=== PATIENT | female | born 1965 | race African-American/Black ===

== ENCOUNTER 2019-01-14 20:31 | Emergency (ER) | payer OTHER ==
--- OUTSIDE RECORDS SUMMARY | 2019-01-14 20:33 | XMS REPORT ---
:1965 [facility] Address [address] [place] [address] [address] [place] [address] Care Team Providers Name Role Phone Unavailable Unavailable Unavailable Problems This patient has no known problems. Allergies, Adverse Reactions, Alerts This patient has no known allergies or adverse reactions. Medications This patient has no known medications.
[2019-01-14] MEDS ORDERED: IBUPROFEN 400 MG TAB ONE (21:22)
[2019-01-14] MEDS ORDERED: ACETAMINOPHEN 500 MG TAB ONE (21:23)
--- NOTE | 2019-01-14 23:22 | EDPHYS ---
Physician Documentation [facility] Name: Oksana Singh Age: 53 yrs Sex: Female : 1965 Arrival Date: 01/14/2019 Time: 20:34 Bed 10 Private MD: Judie Regalado K ED Physician Harry Boswell HPI: 01/14 21:25 This 53 yrs old Black Female presents to ER via Ambulatory with complaints of Knee cp Injury. 21:25 The patient presents with pain, that is acute. The complaints affect the lateral aspect cp of left calf, left calf and left knee. Context: resulted from an unknown cause, the patient can fully bear weight, the patient is able to ambulate, with mild difficulty. 21:25 Onset: The symptoms/episode began/occurred 2-3 weeks ago. Modifying factors: the cp symptoms are aggravated by weight bearing. Associated signs and symptoms: Pertinent negatives fever. Treatment prior to arrival includes: no previous treatment. 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 - Social history:: Smoking status: Patient/guardian denies using tobacco, never smoked. - Ebola Screening: : No symptoms or risks identified at this time. ROS: 21:30 Constitutional: Negative for body aches, chills, fever, poor PO intake. cp 21:30 Eyes: Negative for injury, pain, redness, and discharge. cp 21:30 Cardiovascular: Negative for chest pain, palpitations. 21:30 Respiratory: Negative for cough, shortness of breath, wheezing. 21:30 Abdomen/GI: Negative for abdominal pain, nausea, vomiting, and diarrhea. 21:30 Back: Negative for pain at rest, pain with movement. 21:30 MS/extremity: Positive for pain, tenderness, of the left knee and left calf and lateral aspect of left calf, Negative for injury or acute deformity, decreased range of motion. 21:30 Skin: Negative for rash. 21:30 Neuro: Negative for numbness, weakness. 21:30 All other systems are negative. Exam: 21:45 Constitutional: The patient appears in no acute distress, alert, awake, cp non-diaphoretic, non-toxic, well developed, well nourished, obese. 21:45 Head/Face: Normocephalic, atraumatic. cp 21:45 Eyes: Periorbital structures: appear normal, Conjunctiva: normal, no exudate, no injection, Lids and lashes: appear normal, bilaterally. 21:45 ENT: External ear(s): are unremarkable, Nose: is normal, Mouth: is normal, Posterior pharynx: Airway: no evidence of obstruction, patent. 21:45 Chest/axilla: Inspection: normal. 21:45 Cardiovascular: Rate: normal, Rhythm: regular. 21:45 Respiratory: the patient does not display signs of respiratory distress, Respirations: normal. 21:45 Musculoskeletal/extremity: Extremities: grossly normal except: noted in the left knee and left calf and lateral aspect of left calf: pain, tenderness, There is no evidence of decreased ROM, swelling, DVT Exam: no erythema, no increased warmth, pain, that is mild, of the left leg, tenderness, that is mild, of the left leg. 21:45 Skin: cellulitis, is not appreciated, no rash present. Vital Signs: 21:25 BP 142 / 69; Pulse 80; Resp 18; Pulse Ox 98% ; Pain 8/10; cr4 22:30 BP 137 / 72; Pulse 82; Resp 18; Pulse Ox 100% on R/A; wh MDM: 21:17 Patient medically screened. cp 22:00 Differential diagnosis: closed fracture, tendonitis, DVT. cp 23:20 Data reviewed: vital signs, nurses notes, radiologic studies, plain films, ultrasound. cp 23:21 Test interpretation: by ED physician or midlevel provider: plain radiologic studies. cp Counseling: I had a detailed discussion with the patient and/or guardian regarding: the historical points, exam findings, and any diagnostic results supporting the discharge/admit diagnosis, radiology results, to return to the emergency department if symptoms worsen or persist or if there are any questions or concerns that arise at home. 23:21 Response to treatment: the patient's symptoms have mildly improved after treatment. ED cp course: VSS. Verbal report of US negative for DVT, xrays of left knee negative for fracture. 01/14 21:18 Order name: XRAY Knee LEFT 3 view cp 01/14 21:37 Order name: US Extremity Venous Unilateral Ltd cp Administered Medications: 21:28 Drug: Tylenol 1000 mg Route: PO; cr4 23:29 Follow up: Response: No adverse reaction; Pain is decreased 21:29 Drug: Ibuprofen 800 mg Route: PO; cr4 23:29 Follow up: Response: No adverse reaction; Pain is decreased Disposition: 01/14/19 23:22 Discharged to Home. Impression: Pain in left knee, Pain in left lower leg. - Condition is Stable. - Discharge Instructions: Musculoskeletal Pain, Knee Pain. - Prescriptions for Naprosyn 500 mg Oral Tablet - take 1 tablet by ORAL route 2 times per day take with food; 20 tablet. Tramadol 50 mg Oral Tablet - take 1 tablet by ORAL route every 8 hours as needed; 12 tablet. - Medication Reconciliation Form, Thank You Letter, Antibiotic Education, Prescription Opioid Use form. - Follow up: Andrae Jhaveri MD; When: 2 - 3 days; Reason: Recheck today's complaints. - Problem is new. - Symptoms have improved. Signatures: Dispatcher [employer] EDRosie Daniel, RN RN cr4 Juaquin Ricardo PA PA Kristopher Cross Corrections: (The following items were deleted from the chart) 23:31 23:22 01/14/2019 23:22 Discharged to Home. Impression: Pain in left knee; Pain in left wh lower leg. Condition is Stable. Forms are Medication Reconciliation Form, Thank You Letter, Antibiotic Education, Prescription Opioid Use. Follow up: Andrae Jhaveri; When: 2 - 3 days; Reason: Recheck today's complaints. Problem is new. Symptoms have improved. cp
--- NOTE | 2019-01-14 23:22 | ER ---
Nurse's Notes [facility] Name: Oksana Singh Age: 53 yrs Sex: Female : 1965 Arrival Date: 01/14/2019 Time: 20:34 Bed 10 Private MD: Judie Regalado K Diagnosis: Pain in left knee;Pain in left lower leg Presentation: 01/14 21:08 Presenting complaint: Patient states: patient stated that a month ago she stepped off cr4 of some stairs and felt her knee pop. Since then she has had left knee pain that radiates to the back of the knee and slightly down her leg. Pain increased when standing long periods. Transition of care: patient was not received from another setting of care. Onset of symptoms was December 09, 2018. Risk Assessment: Do you want to hurt yourself or someone else? Patient reports no desire to harm self or others. Initial Sepsis Screen: Does the patient meet any 2 criteria? No. Patient's initial sepsis screen is negative. Care prior to arrival: None. 21:08 Method Of Arrival: Ambulatory cr4 21:08 Acuity: LORETO 5 cr4 22:00 Initial Sepsis Screen: Does the patient have a suspected source of infection? No. Patient's initial sepsis screen is negative. Triage Assessment: 21:15 General: Appears comfortable, obese, well groomed, Behavior is calm, cooperative. Pain: cr4 Complains of pain in left knee Pain radiates to posterior left knee and down mid borja. Pain currently is 8 out of 10 on a pain scale. Quality of pain is described as aching, Pain began one month ago. Is intermittent, Alleviated by standing and exercise. EENT: No deficits noted. Neuro: Denies weakness numbness. Cardiovascular: No deficits noted. Respiratory: No deficits noted. GI: No deficits noted. : No deficits noted. Derm: Skin is intact, Skin is dry, Skin is pink, warm \T\ dry. Musculoskeletal: Circulation, motion, and sensation intact. Range of motion: intact in all extremities. 22:00 Injury Description: Left Knee Pain. 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 - Social history:: Smoking status: Patient/guardian denies using tobacco, never smoked. - Ebola Screening: : No symptoms or risks identified at this time. Screenin:00 Abuse screen: Denies threats or abuse. Denies injuries from another. Nutritional wh screening: No deficits noted. Tuberculosis screening: No symptoms or risk factors identified. Fall Risk None identified. Assessment: 22:00 General: Appears in no apparent distress. uncomfortable, Behavior is calm, cooperative, wh appropriate for age. Pain: Complains of pain in left knee Pain does not radiate. Pain currently is 5 out of 10 on a pain scale. Quality of pain is described as aching. Neuro: Level of Consciousness is awake, alert, obeys commands, Oriented to person, place, time, situation, Appropriate for age. Cardiovascular: Capillary refill < 3 seconds. Respiratory: Airway is patent Respiratory effort is even, unlabored, Respiratory pattern is regular, symmetrical. GI: Abdomen is flat, non-distended. : No signs and/or symptoms were reported regarding the genitourinary system. EENT: No signs and/or symptoms were reported regarding the EENT system. Derm: Skin is intact, is healthy with good turgor, Skin is pink, warm \T\ dry. normal. Musculoskeletal: Range of motion: intact in all extremities, Reports pain in Left KNee. 23:29 Reassessment: Patient appears in no apparent distress at this time. No changes from previously documented assessment. Patient and/or family updated on plan of care and expected duration. Pain level reassessed. Patient is alert, oriented x 3, equal unlabored respirations, skin warm/dry/pink. Patient states feeling better. Patient states symptoms have improved. Vital Signs: 21:25 BP 142 / 69; Pulse 80; Resp 18; Pulse Ox 98% ; Pain 8/10; cr4 22:30 BP 137 / 72; Pulse 82; Resp 18; Pulse Ox 100% on R/A; ED Course: 20:34 Patient arrived in ED. cl3 20:35 Judie Regalado MD is Private Physician. cl3 21:10 Triage completed. cr4 21:13 Juaquin Ricardo PA is PHCP. cp 21:14 Harry Boswell MD is Attending Physician. cp 21:19 Kristopher Cross is Primary Nurse. wh 22:00 XRAY Knee LEFT 3 view In Process Unspecified. EDMS 22:00 Arm band placed on right wrist. wh 22:00 Patient has correct armband on for positive identification. Bed in low position. Call light in reach. Side rails up X 1. Pulse ox on. NIBP on. 23:15 US Extremity Venous Unilateral Ltd In Process Unspecified. EDMS 23:21 Andrae Jhaveri MD is Referral Physician. cp 23:29 No provider procedures requiring assistance completed. Patient did not have IV access during this emergency room visit. Administered Medications: 21:28 Drug: Tylenol 1000 mg Route: PO; cr4 23:29 Follow up: Response: No adverse reaction; Pain is decreased 21:29 Drug: Ibuprofen 800 mg Route: PO; cr4 23:29 Follow up: Response: No adverse reaction; Pain is decreased Outcome: 23:22 Discharge ordered by MD. cp 23:30 Discharged to home ambulatory. 23:30 Condition: good 23:30 Discharge instructions given to patient, Instructed on discharge instructions, follow up and referral plans. no drinking with medication, no driving heavy equipment, medication usage, POC musculoskeletal Pain Demonstrated understanding of instructions, follow-up care, medications, POC Prescriptions given X 2. 23:31 Patient left the ED. Signatures: Dispatcher [employer] Rosie Richey, RN RN cr4 Juaquin Ricardo PA PA Kristopher Sotelo Genaro Vaca cl3
[2019-01-15 01:42] VITALS: BP 137/72; O2SAT 100
--- NOTE | 2019-01-15 08:22 | RAD REPORT ---
EXAM DESCRIPTION: US - Extremity Venous Uni Ltd - 01/14/2019 11:14 pm CLINICAL HISTORY: Left leg pain and swelling COMPARISON: None. TECHNIQUE: Real-time sonographic evaluation of the left lower extremity deep venous system was perfo rmed. FINDINGS: Normal compressibility, flow augmentation, phasic flow and spontaneous flow are identified in the left lower extremity common femoral, superficial femoral, popliteal and posterior tibial vein s. No intraluminal filling defects seen. IMPRESSION: No DVT in the left lower extremity.
--- NOTE | 2019-01-15 10:11 | RAD REPORT ---
EXAM DESCRIPTION: RAD - Knee Left 3 View - 01/14/2019 9:59 pm CLINICAL HISTORY: Left knee pain following trauma COMPARISON: None. FINDINGS: No acute fractures seen. No dislocation or periosteal reaction.No joint effusion seen. Sig nificant patellofemoral joint space narrowing is present with large patella and femoral marginal spur s. Lateral compartment narrowing is present also with significant medial and lateral compartment joseph inal spurs. There are large spurs along the intercondylar notch of the femur and the tibial spine. No air or foreign body in the soft tissues. IMPRESSION: Very advanced for age degenerative change of the left knee. No acute bone or joint findi ng identifiable. Clinical concerns for internal derangement or occult bony injury could be further assessed with MR im aging.
== END 2019-01-14 23:31 | disposition home or self-care (01) ==
LOC: ER 20:31
DX: M25.562 Pain in left knee (principal); M79.662 Pain in left lower leg
CPT/HCPCS: 93971; 99284

== ENCOUNTER 2022-03-09 10:28 | Emergency (ER) | payer OTHER ==
--- OUTSIDE RECORDS SUMMARY | 2022-03-09 10:31 | XMS REPORT | Continuity of Care Document ---
:1965 Author Organization [facility] t Address [address] [place] [address] Care Team Providers Name Role Phone MARIA TERESA GREER Attending Clinician Unavailable Payers Payer Name Policy Type Policy Number Effective Date Expiration Date [facility] [id number] 2018 PPO 00:00:00 Problems This patient has no known problems. Allergies, Adverse Reactions, Alerts Allergy Allergy Status Severity Reaction(s) Onset Inactive Treating Comm ents Source Name Type Date Date Clinician NO KNOWN Drug Active [facility]ER[facility] Medications This patient has no known medications. Procedures This patient has no known procedures. Encounters Start End Encounter Admission Attending Care Care Encounter Source Date/Time Date/Time Type Type Clinicians Facility Department ID 2020-01-11 2020-01-11 Outpatient [facility] [id number] 08:00:00 08:00:00 MARIA TERESA [facility] Results This patient has no known results.
[2022-03-09] MEDS ORDERED: MORPHINE 4 MG/ML SYR ONE (11:16)
[2022-03-09] MEDS ORDERED: ONDANSETRON 4 MG/2 ML VIAL ONE (11:16)
[2022-03-09 11:30] LABS: Absolute Lymphocytes (CBC) 0.9 K/uL (0.7-4.9); Hematocrit 40.1 % (36.0-45.0); Lymphocytes % 13.5 % (15.3-44.8); MCV 83.8 fL (80-100); MPV 7.8 fL (7.6-11.3); RBC Red Blood Cell Count 4.79 M/uL (3.86-4.86)
[2022-03-09 11:40] LABS: Urine Blood Negative (Negative); Urine Glucose Negative (Negative); Urine Protein Negative (Negative); Urine Specific Gravity 1.015 (1.005-1.030); Urine pH 5.5 (5.0-7.0)
--- NOTE | 2022-03-09 12:04 | RAD REPORT ---
EXAM DESCRIPTION: CT - Stone Protocol - 03/09/2022 11:45 am CLINICAL HISTORY: Abdominal pain. Right flank pain COMPARISON: None. TECHNIQUE: Computed axial tomography of the abdomen pelvis was obtained without oral or IV contrast. Lack of IV and oral contrast limits evaluation of solid organs, appendix, bowel, and vessels. Jackson l reformatted images were obtained and reviewed. All CT scans are performed using dose optimization technique as appropriate and may include automated exposure control or mA/KV adjustment according to patient size. FINDINGS: A renal calculus is not seen. An ureteral calculus is not noted. A bladder calculus is not present. Multiple gallstones. Gallbladder wall does not appear thickened. The liver, spleen, pancreas and adrenals appear grossly normal There is no evidence of diverticulitis. The appendix upper limits normal caliber. No stranding within the adjacent fat No adnexal mass Small right pleural effusion Moderate umbilical hernia IMPRESSION: Negative for a genitourinary calculus Cholelithiasis without evidence cholecystitis
[2022-03-09 12:15] LABS: Urine Specific Gravity/Preg 1.015 (1.005-1.030)
[2022-03-09 12:31] LABS: Albumin 2.6 g/dL (3.4-5.0); Bilirubin Total 0.2 mg/dL (0.2-1.0); Potassium 3.8 mmol/L (3.5-5.1); Protein, Total 8.5 g/dL (6.4-8.2)
--- NOTE | 2022-03-09 13:36 | EDPHYS ---
Physician Documentation [facility] Name: Oksana Singh Age: 57 yrs Sex: Female : 1965 Arrival Date: 03/09/2022 Time: 10:32 Bed 15 Private MD: ED Physician London Davis HPI: 03/09 17:36 This 57 yrs old Black Female presents to ER via Ambulatory with complaints of Ear Pain, kdr Low Back Pain - right side, Constipation. 17:36 Patient presents with 2 complaints 1 of which is right ear pain. The other is right kdr flank pain. The ear pain has been ongoing for about a week and a half. The flank pain started Garcia evening. She has not had either of these complaints previously. She is otherwise been in her usual state of health. She denies any other significant illness and injury. She is completely nontoxic appearing and not in any acute distress. She is sitting comfortably in bed on initial presentation and during the exam.. Severity of symptoms: At their worst the symptoms were mild in the emergency department the symptoms are unchanged. The patient has not experienced similar symptoms in the past. The patient has not recently seen a physician. Historical: - Allergies: 10:59 No Known Allergies; ss - PMHx: 10:59 Diabetes - NIDDM; Thyroid problem; ss - Immunization history:: Client reports receiving the 2nd dose of the Covid vaccine. - Social history:: Smoking status: Patient denies any tobacco usage or history of. ROS: 17:36 Constitutional: Negative for fever, chills, and weight loss, Eyes: Negative for injury, kdr pain, redness, and discharge, Neck: Negative for injury, pain, and swelling, Cardiovascular: Negative for chest pain, palpitations, and edema. 17:36 Respiratory: Negative for shortness of breath, cough, wheezing, and pleuritic chest pain, Abdomen/GI: Negative for abdominal pain, nausea, vomiting, diarrhea, and constipation, : Negative for injury, bleeding, discharge, and swelling, MS/Extremity: Negative for injury and deformity, Skin: Negative for injury, rash, and discoloration, Neuro: Negative for headache, weakness, numbness, tingling, and seizure activity. Psych: Negative for depression, anxiety, suicide ideation, homicidal ideation, and hallucinations, Allergy/Immunology: Negative for hives, rash, and allergies, Endocrine: Negative for neck swelling, polydipsia, polyuria, polyphagia, and marked weight changes, Hematologic/Lymphatic: Negative for swollen nodes, abnormal bleeding, and unusual bruising. 17:36 ENT: Positive for ear pain. 17:36 Abdomen/GI: Positive for abdominal pain, Flank pain. Exam: 17:36 Constitutional: This is a well developed, well nourished patient who is awake, alert, kdr and in no acute distress. Head/Face: Normocephalic, atraumatic. Eyes: Pupils equal round and reactive to light, extra-ocular motions intact. Lids and lashes normal. Conjunctiva and sclera are non-icteric and not injected. Cornea within normal limits. Periorbital areas with no swelling, redness, or edema. Neck: Trachea midline, no thyromegaly or masses palpated, and no cervical lymphadenopathy. Supple, full range of motion without nuchal rigidity, or vertebral point tenderness. No Meningismus. Chest/axilla: Normal chest wall appearance and motion. Nontender with no deformity. No lesions are appreciated. Cardiovascular: Regular rate and rhythm with a normal S1 and S2. No gallops, murmurs, or rubs. Normal PMI, no JVD. No pulse deficits. Respiratory: Lungs have equal breath sounds bilaterally, clear to auscultation and percussion. No rales, rhonchi or wheezes noted. No increased work of breathing, no retractions or nasal flaring. Skin: Warm, dry with normal turgor. Normal color with no rashes, no lesions, and no evidence of cellulitis. MS/ Extremity: Pulses equal, no cyanosis. Neurovascular intact. Full, normal range of motion. Neuro: Awake and alert, GCS 15, oriented to person, place, time, and situation. Cranial nerves II-XII grossly intact. Motor strength 5/5 in all extremities. Sensory grossly intact. Cerebellar exam normal. Normal gait. Psych: Awake, alert, with orientation to person, place and time. Behavior, mood, and affect are within normal limits. 17:36 ENT: External ear(s): are unremarkable, Ear canal(s): 17:36 Abdomen/GI: Inspection: obese Bowel sounds: active, Palpation: soft, mild abdominal tenderness, in the posterior aspect of left lateral abdomen and anterior aspect of left lateral abdomen. Vital Signs: 10:44 BP 144 / 80; Pulse 102; Resp 18; Temp 98.2; Pulse Ox 100% on R/A; Weight 147.42 kg; ss Height 5 ft. 6 in. (167.64 cm); Pain 8/10; 12:11 BP 117 / 72; Pulse 94; Resp 16; Pulse Ox 98% on R/A; tp1 13:10 BP 102 / 80; Pulse 112; Resp 16; Pulse Ox 94% on R/A; tp1 10:44 Body Mass Index 52.46 (147.42 kg, 167.64 cm) ss MDM: 13:35 Patient medically screened. kdr 17:36 Data reviewed: vital signs, nurses notes, lab test result(s), radiologic studies. kdr Counseling: I had a detailed discussion with the patient and/or guardian regarding: the historical points, exam findings, and any diagnostic results supporting the discharge/admit diagnosis, lab results, radiology results, the need for outpatient follow up. 03/09 11:12 Order name: CBC with Diff; Complete Time: 12:29 kdr 03/09 11:12 Order name: CMP; Complete Time: 13:24 kdr 03/09 11:12 Order name: Lipase; Complete Time: 13:24 kdr 03/09 11:12 Order name: CT Stone Protocol; Complete Time: 12:29 kdr 03/09 11:41 Order name: Urine Dipstick-Ancillary; Complete Time: 12:29 EDMS 03/09 11:44 Order name: Urine --Ancillary (enter results); Complete Time: 12:29 ss 03/09 11:12 Order name: IV Saline Lock; Complete Time: 11:13 kdr 03/09 11:12 Order name: Labs collected and sent; Complete Time: 11:13 kdr 03/09 11:33 Order name: Labs - recollect needed; Complete Time: 12:05 ss Administered Medications: 11:19 Drug: Zofran (Ondansetron) 4 mg Route: IVP; Site: left antecubital; tp1 11:21 Drug: morphine 4 mg Route: IVP; Infused Over: 4 mins; Site: left antecubital; tp1 Disposition Summary: 03/09/22 13:35 Discharge Ordered Location: Home kdr Problem: new kdr Symptoms: have improved kdr Condition: Stable kdr Diagnosis - Flank pain kdr - Abdominal pain, Generalized kdr - Other cholelithiasis without obstruction kdr - Unspecified otitis externa, right ear kdr Followup: kdr - With: Private Physician - When: 2 - 3 days - Reason: If symptoms return, Further diagnostic work-up, Recheck today's complaints, Continuance of care, Re-evaluation by your physician Discharge Instructions: - Discharge Summary Sheet kdr - Flank Pain, Adult kdr - Otitis Externa, [id number] kdr - Abdominal Pain, Adult, [id number] kdr Forms: - Medication Reconciliation Form kdr - Thank You Letter kdr - Antibiotic Education kdr - Prescription Opioid Use kdr Prescriptions: - Cortisporin-TC 3.3-3-10-0.5 mg/mL Otic Suspension - instill 4 drops by OTIC route every 6 hours; 1 bottle; Refills: 0, Product kdr Selection Permitted - Tramadol 50 mg Oral Tablet - take 1 tablet by ORAL route every 8 hours as needed; 12 tablet; Refills: 0, kdr Product Selection Permitted Signatures: Dispatcher [employer] EDLondon Bryson MD MD kdr Krista Odell, RN RN ss Anel Alex RN RN tp1
--- NOTE | 2022-03-09 13:36 | ER ---
Nurse's Notes [facility] Name: Oksana Singh Age: 57 yrs Sex: Female : 1965 Arrival Date: 03/09/2022 Time: 10:32 Bed 15 Private MD: Diagnosis: Flank pain;Abdominal pain, Generalized;Other cholelithiasis without obstruction;Unspecified otitis externa, right ear Presentation: 03/09 10:44 Chief complaint: Patient states: R ear pain x 1.5 weeks and R low back pain that began ss Garcia evening. Coronavirus screen: Client denies travel out of the [place] in the last 14 days. Ebola Screen: Patient denies exposure to infectious person. Patient denies travel to an Ebola-affected area in the 21 days before illness onset. Initial Sepsis Screen: Does the patient meet any 2 criteria? No. Patient's initial sepsis screen is negative. Does the patient have a suspected source of infection? No. Patient's initial sepsis screen is negative. Risk Assessment: Do you want to hurt yourself or someone else? Patient reports no desire to harm self or others. Onset of symptoms was February 2022. 10:44 Method Of Arrival: Ambulatory ss 10:44 Acuity: LORETO 3 ss Historical: - Allergies: 10:59 No Known Allergies; ss - PMHx: 10:59 Diabetes - NIDDM; Thyroid problem; ss - Immunization history:: Client reports receiving the 2nd dose of the Covid vaccine. - Social history:: Smoking status: Patient denies any tobacco usage or history of. Screenin:04 Abuse screen: Denies threats or abuse. Denies injuries from another. Nutritional tp1 screening: No deficits noted. Tuberculosis screening: No symptoms or risk factors identified. Fall Risk None identified. Assessment: 11:00 General: Appears in no apparent distress. comfortable, Behavior is calm, cooperative. tp1 Pain: Complains of pain in right low back and right ear Pain does not radiate. Pain currently is 8 out of 10 on a pain scale. Quality of pain is described as aching, Pain began 2-3 days ago. Is continuous. Neuro: Level of Consciousness is awake, alert, obeys commands, Oriented to person, place, time, situation. Cardiovascular: Patient's skin is warm and dry. Respiratory: Airway is patent Respiratory effort is even, unlabored. GI: Abdomen is obese, Reports constipation, nausea, Patient currently denies vomiting. : Denies burning with urination, urinary frequency, urgency. EENT: Ear canal clear on right ear Reports nasal congestion. Derm: Skin is pink, warm \T\ dry. Musculoskeletal: Circulation, motion, and sensation intact. 12:05 Reassessment: Patient appears in no apparent distress at this time. Patient and/or tp1 family updated on plan of care and expected duration. Pain level reassessed. Patient is alert, oriented x 3, equal unlabored respirations, skin warm/dry/pink. states pain and nausea have decreased. rates pain 6/10, denies need for further intervention. 13:09 Reassessment: Patient appears in no apparent distress at this time. No changes from tp1 previously documented assessment. Patient is alert, oriented x 3, equal unlabored respirations, skin warm/dry/pink. Vital Signs: 10:44 BP 144 / 80; Pulse 102; Resp 18; Temp 98.2; Pulse Ox 100% on R/A; Weight 147.42 kg; ss Height 5 ft. 6 in. (167.64 cm); Pain 8/10; 12:11 BP 117 / 72; Pulse 94; Resp 16; Pulse Ox 98% on R/A; tp1 13:10 BP 102 / 80; Pulse 112; Resp 16; Pulse Ox 94% on R/A; tp1 10:44 Body Mass Index 52.46 (147.42 kg, 167.64 cm) ED Course: 10:32 Patient arrived in ED. am2 10:35 Zan Vaca, SOUMYA is Primary Nurse. ll1 10:35 Arm band placed on Patient placed in an exam room, on a stretcher. ll1 10:43 London Davis MD is Attending Physician. kdr 10:59 Triage completed. ss 11:00 Patient has correct armband on for positive identification. Bed in low position. Call tp1 light in reach. 11:00 Pulse ox on. NIBP on. tp1 11:13 Inserted saline lock: 20 gauge in left antecubital area, using aseptic technique. Blood tp1 collected. 11:24 CMP Sent. tp1 11:47 CT Stone Protocol In Process Unspecified. EDMS 12:05 Lab(s) recollected, by me, sent to lab. tp1 14:24 No provider procedures requiring assistance completed. Patient did not have IV access ss during this emergency room visit. Administered Medications: 11:19 Drug: Zofran (Ondansetron) 4 mg Route: IVP; Site: left antecubital; tp1 11:21 Drug: morphine 4 mg Route: IVP; Infused Over: 4 mins; Site: left antecubital; tp1 Medication: 11:25 VIS not applicable for this client. tp1 Outcome: 13:35 Discharge ordered by . kdr 14:24 Discharged to home ambulatory. ss 14:24 Condition: good 14:24 Discharge instructions given to patient, family, Instructed on discharge instructions, follow up and referral plans. medication usage, Demonstrated understanding of instructions, follow-up care, medications, Prescriptions given X 2. 14:25 Patient left the ED. ss Signatures: Dispatcher [employer] EDMS London Davis MD MD kdr Smirch, Shelby, RN RN ss Meghann Cannon Lynsay, RN RN ll1 Anel Alex RN RN tp1
[2022-03-09 14:35] VITALS: TEMP 98.2
[2022-03-09 14:47] VITALS: BP 102/80; O2SAT 94
== END 2022-03-09 14:25 | disposition home or self-care (01) ==
LOC: ER 10:28
DX: K80.80 Other cholelithiasis without obstruction (principal); H60.91 Unspecified otitis externa, right ear; E11.9 Type 2 diabetes mellitus without complications
CPT/HCPCS: 85025; 36415; 81025; 81003; 83690; 80053; 76377; 74176; 96375; 96374; 99284; J2405